=== PATIENT | female | born 1940 | race Caucasian/White ===

== ENCOUNTER → 2018-06-03 | Outpatient (CLI) | payer MEDICARE | END | disposition home or self-care (01) | LOC: SUSANVILLE 08:00 | PROVIDERS: ATTEND Internal Medicine Cardiovascular Disease | DX: I08.3 Combined rheumatic disorders of mitral, aortic and tricuspid valves (principal); I11.0 Hypertensive heart disease with heart failure | CPT/HCPCS: 93306 ==